=== PATIENT | male | born 1990 | race Caucasian/White ===

== ENCOUNTER 2017-07-14 13:20 | Emergency (ER) | payer OTHER, SELFPAY ==
[2017-07-14 13:22] VITALS: BP 141/94; PULSE 94; RESP 16; TEMP 37.2; O2SAT 100; BMI 28.8
--- NOTE | 2017-07-14 13:28 | EKG12_ITS ---
Test Reason : CP Blood Pressure : / mmHG Vent. Rate : 091 BPM Atrial Rate : 091 BPM P-R Int : 120 ms QRS Dur : 088 ms QT Int : 348 ms P-R-T Axes : 080 079 071 degrees QTc Int : 428 ms Normal sinus rhythm Normal ECG Confirmed by EUGENIE GUTIERREZ, LILIAN ([id number]), communications editor MARQUISE ENG ([id number]) on 07/16/2017 2:10:11 PM Referred By: CHAGO/AMINA Confirmed By:LILIAN TRAORE MD
[2017-07-14 15:25] VITALS: BP 136/86; PULSE 71; RESP 14; O2SAT 100
[2017-07-14 15:26] VITALS: O2SAT 99
--- NOTE | 2017-07-14 15:28 | ED.DCSUM_ITS ---
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 He has history of asthma. Where he works is exposed to dust. He does not wear a mask. He states he has been using his inhaler without much effect. He does not have a spacer. He does report intermittent fever no chills or night sweats. He does complain of nasal congestion and rhinorrhea. He denies earache. Just mild sore throat with coughing. His cough is nonproductive. His chest discomfort described as a spasm sensation centrally and left lower lobe anteriorly. He denies any radiation for associated symptoms with this chest discomfort. He denies any leg pain, swelling or discoloration. He has no history of PE or DVT. He has no risk factors. Physical Examination: Vital signs are remarkable only blood pressure 141/94. Head is atraumatic no cephalic. Pupils equal round reactive. Extra muscle intact. Sclerae anicteric. TMs are normal. Nares positive clear drainage. Posterior pharynx without erythema or exudate and a midline uvula. Trachea midline. No cervical lymphadenopathy. There is no stridor. Heart is regular without murmur, gallop or rub. S1 and S2 are normal. Lungs are clear to auscultation with good movement of air bilaterally. There is no chest chest discomfort with palpation. There is no asymmetry, swelling, discoloration, leg vein distention, palpable cords or tenderness along the distribution of the deep venous system. Test Results: None were obtained Emergency Department Course and Treatment: Patient is PERC negative. His history and symptoms are consistent with an acute viral respiratory infection and pleurisy. Treatment Plan: 4 Advil every 8 hours or 2 Aleve every 12 hours for the next 3- 5 days. He was given a prescription for a spacer. Disposition: Discharged to home in stable condition Impression: 1. Acute viral upper restaurant infection 2. Pleurisy secondary #1 3. History of asthma 4. History of HHT This note was generated with [employer] dictation software. It may contain incorrect words, spelling, and punctuation that were not noted in review of the chart prior to signing ED Disposition - Plan for ED Patient: Disposition: Home or Assisted Living Chief Complaint: Chest Pain Instructions: ED Chest Pain Pleurisy Prescriptions: Inhaler, Assist Devices [Space Chamber Plus] 1 gavi SWIFT UD #1 spacer Referrals: Care Physician,No Primary [Primary Care Provider] - Doctor,Your [STAFF PHYSICIAN] - 10-14 Days if not better
== END 2017-07-14 15:55 | disposition home or self-care (01) ==
PROVIDERS: Emergency Provider Emergency Medicine
DX: J06.9 Acute upper respiratory infection, unspecified (principal); R09.1 Pleurisy; J45.909 Unspecified asthma, uncomplicated; I78.0 Hereditary hemorrhagic telangiectasia
CPT/HCPCS: 93005; 99282

== ENCOUNTER 2018-02-20 08:47 | Emergency (ER) | payer OTHER, SELFPAY ==
[2018-02-20 08:48] VITALS: BP 129/87; PULSE 90; RESP 18; TEMP 36.6; O2SAT 100; BMI 29.3
--- NOTE | 2018-02-20 08:55 | RAD_ITS ---
STUDY: X-RAY - ACUTE ABDOMINAL SERIES REASON FOR EXAM: Male, 27 years old. Back pain and flank pain. TECHNIQUE: Single view of the chest. Supine, and erect view(s) of the abdomen were obtained. COMPARISON: None. FINDINGS: The lungs are clear and expanded. Embolization coils or sutures are seen in the right lung apex. Normal size heart. Normal mediastinum and mark. Normal visualized pulmonary arteries. Normal visualized aortic arch and descending thoracic aorta. There is a moderate amount of colonic fecal material. The soft tissue structures of the abdomen and pelvis are unremarkable. Metallic coils are seen overlying the liver. Normal visualized osseous structures. RAD/Acute Abdomen Inc Chest IMPRESSION: Moderate amount of fecal material is seen in the colon. Electronically Signed: Abdiel Clark MD at 9:37 EDT Tel [phone], Service support ,
--- NOTE | 2018-02-20 08:58 | ED.VISSUMM ---
- ER Visit Summary Date of Service: 02/20/18 Chief Complaint: Left lower back pain, constipation History of Present Illness: The patient is a 27 M presents to the emergency department with left lower back pain and constipation. Patient states his symptoms began gradually. He states he began to have a dull ache in his left lower back. He states over the past 36 hours, he is at other diminished stool output. He states he had constipation before, but is never had pain in his back. He denies any urinary symptoms. He denies any fevers or chills. He states he was mildly nauseated but denies any vomiting. He did try MiraLAX last night, but has had no output. He had no prior abdominal surgery. He denies any history of inflammatory bowel disease. He had no chills, weight loss, night sweats, or other systemic symptoms. Physical Examination: Vital signs reviewed General: Well-nourished, well-developed Head: Normocephalic, atraumatic Eyes: Pupils equal and reactive, extraocular muscles intact Neck, supple, no lymphadenopathy Heart: Regular rate and rhythm Respiratory: No distress, clear bilaterally Abdomen: Soft, nontender, nondistended, no peritoneal signs Back: Nontender Extremities: Nontender, no edema, no cords Skin: Normal color no rash Neuro: Alert and oriented, no focal or lateralizing deficits Test Results: [] Emergency Department Course and Treatment: The patient's abdomen is soft. He has no rebound, guarding, or peritoneal signs. He has no flank tenderness. IV was established. Patient was given IV fluids. He does have a mild leukocytosis, but I feel that this is likely reactive. Again, he had no other systemic symptoms besides some pain difficulty moving his bowels. I did obtain plain films of the abdomen. These do demonstrate a large stool burden, but the bulk of it appears to be in the ascending and transverse colon. I do not feel an enema is required at this time. I am going to treat him with magnesium citrate, Colace, and Bentyl to help with the spasm. The patient is resting comfortably. I did senior vice president & general counsel him that if his pain worsens, his symptoms not improving, he has a fever, or any other concerning symptoms within the next 24-48 hours he should return here immediately. He is comfortable with this plan of care. Treatment Plan: [] Disposition: [] Impression: 1. Abdominal pain 2. Constipation This note was generated with [employer] dictation software. It may contain incorrect words, spelling, and punctuation that were not noted in review of the chart prior to signing ED Disposition - Plan for ED Patient: Chief Complaint: Back Instructions: ED Constipation Prescriptions: Dicyclomine HCl [Bentyl] 20 mg PO TIDAC #20 cap Docusate Sodium [Colace] 100 mg PO DAILY #20 cap Referrals: Tanvir Mclaughlin MD [Primary Care Provider] -
[2018-02-20] MEDS: 0.9% Normal Saline 1,000 ML 1000 ML IV (09:10)
[2018-02-20 09:14] LABS: Absolute Lymphocyte Count 1.09 X10^3/ul (0.83-4.51); Absolute Neutrophil Count 11.2 X10^3/uL (2.0-7.7); Hematocrit 47.2 % (40-54); Hemoglobin 15.8 g/dl (13.0-16.5); Lymphocyte # 1.09 X10^3/ul (4.0); Lymphocyte % 8.1 % (19-41); Mean Corp Hgb Conc 33.5 g/gl (32-36); Mean Corpuscular Hgb 29.3 pg (27.0-32.0); Mean Corpuscular Volume 87.4 fL (80-94); Mean Platelet Vol. 9.7 fl (6.2-12.0); Monocyte# 1.28 X10^3/uL; Monocyte% 9.5 % (0-10); Neutrophil # 11.16 X10^3/uL (2.7-7.7); Neutrophil % 82.3 % (47-70); Platelet Count 227 K/mm3 (150-450); RBC Distribution Width CV 13.6 % (11.6-14.6); RBC Distribution Width SD 43.5 fl (35.1-43.9); White Blood Count 13.5 K/mm3 (4.4-11.0)
[2018-02-20 09:15] LABS: POSITIVE COUNT NO; POSITIVE DIFFERENTIAL NO; POSITIVE MORPHOLOGY NO
[2018-02-20 09:30] LABS: ALB/GLOB Ratio 1.1 RATIO (0.9-2.4); AST(SGOT) 16 U/L (15-37); Alanine Aminotransfer ALT/SGPT 29 U/L (16-61); Albumin, Serum 4.4 g/dL (3.2-5.0); Alkaline Phosphatase 72 U/L (45-117); Anion Gap 9 (5-15); BUN 18 mg/dL (7-18); BUN/Creat Ratio 13.1 RATIO (10-20); Calcium,Total 9.1 mg/dL (8.5-10.1); Chloride 107 mmol/L (98-107); Creatinine, Serum 1.37 mg/dL (0.70-1.30); EST Glomerular Filtration Rate 65 mL/min (>60); Est Glom Filt Rate - Afr Amer 79 mL/min (>60); Estimated Creatinine Clearance 76.97 ml/min; Globulin 3.9 g/dL (2.2-4.2); Glucose 103 mg/dL (74-106); Potassium 4.1 mmol/L (3.5-5.1); Protein, Total 8.3 g/dL (6.4-8.2); Sodium Level 141 mmol/L (136-145)
[2018-02-20 09:52] VITALS: BP 129/93; PULSE 80; RESP 16; O2SAT 100
[2018-02-20] MEDS: Magnesium Citrate 300 ML PO (09:56)
== END 2018-02-20 09:56 | disposition home or self-care (01) ==
PROVIDERS: Emergency Provider Emergency Medicine; Family Provider Family Medicine; PCP Family Medicine
DX: K59.00 Constipation, unspecified (principal); R10.9 Unspecified abdominal pain
CPT/HCPCS: 74022; 80053; 85025; 96360; 99285; J7030

== ENCOUNTER 2018-04-07 12:48 | Emergency (ER) | payer OTHER, SELFPAY ==
[2018-04-07 12:49] VITALS: BP 141/94; PULSE 99; RESP 18; TEMP 35.8; O2SAT 100; BMI 32.2
--- NOTE | 2018-04-07 13:00 | RAD_ITS ---
STUDY: X-RAY - LEFT HAND REASON FOR EXAM: Male, 27 years old. Crush injury. Pain. TECHNIQUE: 3 view(s) of the hand. COMPARISON: None. FINDINGS: Normal radiocarpal articulation. Normal distal radioulnar joint. Normal visualized carpal bones. Normal carpal articulations Normal carpometacarpal articulation of the thumb. Normal second through fifth carpometacarpal joints. Normal metacarpi. Normal metacarpophalangeal joint of the thumb. Normal interphalangeal joint of the thumb. Normal proximal and distal phalanges of the thumb. Normal metacarpophalangeal joints of the second through fifth fingers. Normal proximal and distal interphalangeal joints of the second through fifth fingers. Normal phalanges of the second through fifth fingers. Soft tissue swelling. RAD/Hand Min 3 Views IMPRESSION: Soft tissue swelling. Electronically Signed: Abdiel Clark MD at 13:51 EST Tel [phone], Service support ,
--- NOTE | 2018-04-07 14:28 | ED.DCSUM_ITS ---
- ER Visit Summary Date of Service: 04/07/18 Chief Complaint: [3 to left hand] History of Present Illness: The patient is a 27 M [presents to the emergency department complaint of an injury to his left hand that occurred while at work about 20 minutes ago. Patient states that a mold came off the hook and crushed his left hand between the mold weighing over 200 pounds in a beam. Patient is right-hand dominant. Patient is up-to-date on tetanus.] Physical Examination: [Left hand-patient has a 2.5 cm laceration over the dorsum of the hand. No obvious deformity. Patient has normal range of motion of all digits. Patient does complain of some numbness to light touch over the radial aspect of the dorsum of the hand. No pain at the wrist.] Test Results: [X-rays of the left hand obtained showed no fractures] Emergency Department Course and Treatment: [Laceration repair-wound sterilely draped and prepped. Wound cleansed with Shur-Clens and irrigated with copious saline. Using 5-0 nylon a total of 3 single interrupted sutures placed with good wound edge approximation. Patient tolerated procedure well. Clean dressing was applied. Patient given an Kenrick wrap. Patient given 1 dose of Keflex.] Treatment Plan: [Patient will be started on Keflex and given work restrictions.] Disposition: [Discharged home in stable condition. Patient to follow-up with corporate care in 10 days for suture removal.] Impression: [Crush injury left hand Laceration left hand 2.5 cm-simple repair] This note was generated with [employer] dictation software. It may contain incorrect words, spelling, and punctuation that were not noted in review of the chart prior to signing ED Disposition - Plan for ED Patient: Chief Complaint: Upper Extremity Injury Referrals: Tanvir Mclaughlin MD [Primary Care Provider] -
--- NOTE | 2018-04-07 14:28 | ED.DEP ---
ED Disposition - Plan for ED Patient: Chief Complaint: Upper Extremity Injury Instructions: ED Crush Injury Finger No Fx, ED Laceration Hand Prescriptions: Cephalexin [Keflex] 500 mg PO Q6 #40 cap Referrals: Tanvir Mclaughlin MD [Primary Care Provider] - [facility]] - 10 Day for suture removal
[2018-04-07] MEDS: Cephalexin 250 MG Capsule 500 MG PO (14:38)
== END 2018-04-07 14:43 | disposition home or self-care (01) ==
PROVIDERS: Emergency Provider Emergency Medicine; Family Provider Family Medicine; PCP Family Medicine
DX: S61.412A Laceration without foreign body of left hand, initial encounter (principal); S67.22XA Crushing injury of left hand, initial encounter; W22.8XXA Striking against or struck by other objects, initial encounter; Y93.9 Activity, unspecified; Y92.9 Unspecified place or not applicable; F17.220 Nicotine dependence, chewing tobacco, uncomplicated
CPT/HCPCS: 12001; 73130; 99284

== ENCOUNTER 2024-04-16 11:19 | Emergency (ER) | payer OTHER, SELFPAY ==
[2024-04-16 11:20] VITALS: BP 158/91; PULSE 102; RESP 20; TEMP 36.4; O2SAT 98; BMI 31.7
--- NOTE | 2024-04-16 11:26 | ED.RN ---
network control supervisor levi [phone] called and left message at this time to call back about drug testing status company not listed in hospital database
--- NOTE | 2024-04-16 11:32 | RAD_ITS ---
STUDY: X-RAY - LEFT HAND REASON FOR EXAM: Male, 33 years old. Pain TECHNIQUE: 3 view(s) of the hand. COMPARISON: None. FINDINGS: Normal radiocarpal articulation. Normal distal radioulnar joint. Normal visualized carpal bones. Normal carpal articulations Normal carpometacarpal articulation of the thumb. Normal second through fifth carpometacarpal joints. Normal metacarpi. Normal metacarpophalangeal joint of the thumb. Normal interphalangeal joint of the thumb. Normal proximal and distal phalanges of the thumb. Normal metacarpophalangeal joints of the second through fifth fingers. Normal proximal and distal interphalangeal joints of the second through fifth fingers. Transverse fracture through the middle phalanx of the index finger. Soft tissue swelling. RAD/Hand Min 3 Views IMPRESSION: Transverse fracture through the midportion of the middle phalanx of the index finger. Electronically Signed: Abdiel Clark MD at 12:03 EST ,
--- NOTE | 2024-04-16 11:32 | RAD_ITS ---
STUDY: X-RAY - RIGHT HAND REASON FOR EXAM: Male, 33 years old. Pain following injury. TECHNIQUE: 3 view(s) of the hand. COMPARISON: None. FINDINGS: Normal radiocarpal articulation. Normal distal radioulnar joint. Normal visualized carpal bones. Normal carpal articulations Normal carpometacarpal articulation of the thumb. Normal second through fifth carpometacarpal joints. Normal metacarpi. Normal metacarpophalangeal joint of the thumb. Normal interphalangeal joint of the thumb. Normal proximal and distal phalanges of the thumb. Normal metacarpophalangeal joints of the second through fifth fingers. Normal proximal and distal interphalangeal joints of the second through fifth fingers. Normal phalanges of the second through fifth fingers. The soft tissue structures are unremarkable. RAD/Hand Min 3 Views IMPRESSION: Normal x-ray examination of the hand. Electronically Signed: Abdiel Clark MD at 12:02 EST ,
--- NOTE | 2024-04-16 11:36 | EDS_ITS ---
HPI <ALVAREZ Andre - Last Filed: 04/16/24 15:10> History of Present Illness Chief Complaint: Upper Extremity Injury Narrative Narrative: 33-year-old male was at his job and a clamp holding steel molds came off and both hands were crushed in between the molds. He had started to pull his hands back so mostly his fingers were injured. He has small lacerations to the left middle and right pinky fingers. He is right-hand dominant. No weakness numbness or tingling. PFSH <ALVAREZ Andre - Last Filed: 04/16/24 15:10> [facility] Medical History Right otitis media Encounter for screening for COVID-19 Chronic neck and back pain Asthma Chest pain Home Medications ?Medication ?Instructions ?Recorded ?Last Taken ?Type NK 04/05/21 Unknown History Allergy/AdvReac Type Severity Reaction Status Date / Time No Known Allergies Allergy Verified 04/05/21 10:27 Family History Other HHT (hereditary hemorrhagic telangiectasia) Surgical History coil of AVMS in lungs Social History Smoking Status: Never smoker ROS <ALVAREZ Andre - Last Filed: 04/16/24 15:10> ROS ED ROS Narrative Neuro: Negative for motor/sensory dysfunction. Skin: Positive for abrasions. Musc: Positive for hand injuries. EXAM <ALVAREZ Andre - Last Filed: 04/16/24 15:10> Physical Exam Narrative Exam Narrative: CONST: Patient sitting in no acute distress. EYES: Normal inspection. SKIN: 1 cm superficial flap laceration left dorsal PIP joint of the middle finger. 1 cm superficial laceration right dorsal proximal phalanx of the pinky finger. EXTREMITIES: Swelling and tenderness over the left index finger and slight deformity over middle phalanx. No lacerations in this area. Brisk cap refill in all digits, 2 point discrimination intact. NEURO: Alert and answering questions appropriately. PSYCH: Normal affect. Const Vital Signs: 04/16/24 11:20 Temperature 97.5 F L Temperature Source Temporal Pulse Rate 102 H Respiratory Rate 20 H Blood Pressure 158/91 H Blood Pressure Mean 113 Pulse Ox 98 Oxygen Delivery Method Room Air [facility] <ALVAREZ Andre - Last Filed: 04/16/24 15:10> [facility] Narrative Medical decision making narrative: Differential: Hand contusion versus fracture Consults: plastic surgery I have personally performed a face to face assessment of the patient and have reviewed the JOAO Note. I performed a substantive portion of the visit including all aspects of the following. My jenkins findings include: History is remarkable for crush injury to fingers of his right and left hand. [id number]. Complains of numbness in his left index finger. Will assess tetanus status. Exam is remarkable for deformity of the left index finger. 2 point discrimination is normal. The extensor Intrasite, extensor commonness and extensor minimized tendon is intact right and left hand. The flexor digitorum superficialis and flexor digitorum profundus are intact left index finger. There is deformity of his left index finger. Capillary fill is normal. There is no subungual hematoma of any of his digits. Does have lacerations which were pared by the physician customer care assistant. Medical Decision Making x-ray was obtained. ED attending interpretation of left hand shows a displaced fracture of the middle phalanx. He has bayonet apposition with the distal fragment displaced dorsally. Other additions or changes: Digit was anesthetized by nerve block. The finger/fracture was reduced. Postreduction film shows better alignment but he will require repair. Spoke with Dr. Nuñez. He agrees patient needs repair. He did see patient in the emergency department. Patient is scheduled for repair on Friday. <Dr. Jesus Manuel Wallis MD - Last Filed: 04/16/24 17:24> [facility] Narrative Medical decision making narrative: Differential: Hand contusion versus fracture Consults: plastic surgery I have personally performed a face to face assessment of the patient and have reviewed the JOAO Note. I performed a substantive portion of the visit including all aspects of the following. My jenkins findings include: History is remarkable for crush injury to fingers of his right and left hand. [id number]. Complains of numbness in his left index finger. Will assess tetanus status. Exam is remarkable for deformity of the left index finger. 2 point discrimination is normal. The extensor Intrasite, extensor commonness and extensor minimized tendon is intact right and left hand. The flexor digitorum superficialis and flexor digitorum profundus are intact left index finger. There is deformity of his left index finger. Capillary fill is normal. There is no subungual hematoma of any of his digits. Does have lacerations which were pared by the physician customer care assistant. Medical Decision Making x-ray was obtained. ED attending interpretation of left hand shows a displaced fracture of the middle phalanx. He has bayonet appo sition with the distal fragment displaced dorsally.Closed reduction of fracture by me. Other additions or changes: Digit was anesthetized by nerve block. The finger/fracture was reduced. Postreduction film shows better alignment but he will require repair. Spoke with Dr. Nuñez. He agrees patient needs repair. He did see patient in the emergency department. Patient is scheduled for repair on Friday. Procedures <ALVAREZ Andre - Last Filed: 04/16/24 15:10> Lacerations left middle finger: Length: 0.39 in Depth: Skin Shape: Flap Prep: Sterile Conditions and Shure-Clens Laceration repair: Irrigated and Lidocaine Irrigated (ml): 50 Number of Sutures/Rayo: 2 Suture Information: Ethilon and 5-0 right pinky finger: Length: 0.39 in Depth: Skin Shape: Linear Prep: Sterile Conditions Laceration repair: Irrigated and Lidocaine Irrigated (ml): 50 Number of Sutures/[place]: 2 Suture Information: Ethilon and 5-0 <Dr. Jesus Manuel Wallis MD - Last Filed: 04/16/24 17:24> Upper Extremity Splints Upper Extremity Splint: Plaster and - (short arm radial cutter) Splint Fabrication: Fabricated Location: Left Discharge Plan Triage Chief Complaint: Upper Extremity Injury ED Midlevel Provider: Yuli Becker ED Provider: Jesus Manuel Wallis Dx/Rx/DC Orders Clinical Impression: Closed fracture of phalanx of left index finger, Laceration of left middle finger, Laceration of right little finger, Crush injury to hand Instructions: ED Fracture, Finger, Closed Prescriptions: No Action NK Primary Care Provider: Tanvir Mclaughlin Referrals: Tanvir Mclaughlin MD [Primary Care Provider] - Armand Nuñez MD [Med Staff - Active Staff] - Activity Restrictions/Additional Instructions: Get cleared by your film inspector and then Dr. Nuñez plans to do surgery on the finger this Friday. Print Language: Bahraini Disposition Disposition: Home, Self Care Discharge Date/Time: 04/16/24 14:38
[2024-04-16] MEDS: Diphth,Pertuss(Acell),Tet Vac 0.5 ML Vial IM (12:02)
[2024-04-16] MEDS: Acetaminophen 500 MG Tablet 1000 MG PO (12:03)
[2024-04-16] MEDS: Lidocaine 1% (20 ml mdv) 20 ML Vial INFILT (12:11)
[2024-04-16 12:19] VITALS: BP 138/98; PULSE 89; RESP 16; O2SAT 99
--- NOTE | 2024-04-16 12:43 | RAD_ITS ---
STUDY: X-RAY - LEFT HAND REASON FOR EXAM: Male, 33 years old. Pain TECHNIQUE: 3 view(s) of the hand. COMPARISON: Comparison is made with prior study done earlier. FINDINGS: Normal radiocarpal articulation. Normal distal radioulnar joint. Normal visualized carpal bones. Normal carpal articulations Normal carpometacarpal articulation of the thumb. Normal second through fifth carpometacarpal joints. Normal metacarpi. Normal metacarpophalangeal joint of the thumb. Normal interphalangeal joint of the thumb. Normal proximal and distal phalanges of the thumb. Normal metacarpophalangeal joints of the second through fifth fingers. Normal proximal and distal interphalangeal joints of the second through fifth fingers. Satisfactory reduction of the fracture through the middle phalanx of the index finger. Soft tissue swelling. RAD/Hand Min 3 Views IMPRESSION: Satisfactory reduction of the fracture through the middle phalanx of the index finger. Electronically Signed: Abdiel Clark MD at 12:53 EST ,
[2024-04-16 13:00] VITALS: BP 116/68; PULSE 78
[2024-04-16 14:00] VITALS: BP 124/87; PULSE 75
--- NOTE | 2024-04-16 14:28 | EX.PCM.CON.S ---
Assessment & Plan Assessment/Plan (1) Closed fracture of phalanx of left index finger: PLAN: I talked the patient extensively about the risks of surgery, including bleeding, infection, damage to surrounding structures, malunion/nonunion, failure of the hardware, worsening of the fracture with attempted placement of hardware (including creating an intra-articular component of the fracture), infection of the hardware, surgical site dehiscence and wound formation, need for wound care, need for repeat operations, failure to obtain the desired result, DVT/PE, and the risks of anesthesia including . The benefits and alternatives of this surgery were also discussed. We discussed possibility of managing closed, which would need require immobilization and likely re-reduction for improved alignment. For surgery, we talked about sedation and local as a possibility. We will have him get clearance/medical optimization recommendations from his woodyard operator in anticipation for fracture fixation (possible closed reduction percutaneous pinning v open reduction internal fixation of the left index finger fracture). CPT codes for insurance prior authorization are as follows: 76216 (open, internal fix), 15903 (closed perc pin) All of their questions were answered, and they agreed to proceed with surgery. Patient and his were happy with the plan. HPI Consult Data Date of Consult: 04/16/24 HPI Narrative HPI Narrative: ANANDA COWART is a 33 M who presents with a left index finger crush injury/fracture. 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 Reports sharp, severe pain in the effected extremity, worsened by movements, and improved with rest and elevation. He has never had surgery on the left hand before. He chews tobacco consistently (discussed need for cessation). He had lacerations on his right and left hand on other fingers, but no bony injuries in these locations on xrays. He does not have any lacerations (closed injury) at the fracture site. The ED physician washed out the lacerations and closed them. He also attempted a reduction of fracture, but appears still displaced on the xray. He has a history of a bleeding diathesis. 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 He follows with a physician at [facility]. He had a severe bleed as a child with his tonsils being removed, and he gets daily nose bleeds. [facility] Medical History Right otitis media Encounter for screening for COVID-19 Chronic neck and back pain Asthma Chest pain Home Medications ?Medication ?Instructions ?Recorded ?Last Taken ?Type NK 04/05/21 Unknown History Allergy/AdvReac Type Severity Reaction Status Date / Time No Known Allergies Allergy Verified 04/05/21 10:27 Family History Other HHT (hereditary hemorrhagic telangiectasia) Surgical History coil of AVMS in lungs Social History Smoking Status: Never smoker Physical Exam Narrative LEFT UPPER EXTREMITY Inspection: No scissoring or angulation, but clear deformity (dorsal angulation) Motor: Able to bend and extend all MP, PIP, and DIP joints. Sensory: Intact to light touch on the radial and ulnar borders. Vascular: Finger tips are warm and well perfused with <2 second capillary refill. Imaging Radiology Impression Hand X-Ray 04/16/24 11:32 IMPRESSION: Transverse fracture through the midportion of the middle phalanx of the index finger. Electronically Signed: Abdiel Clark MD at 12:03 EST , Hand X-Ray 04/16/24 11:32 IMPRESSION: Normal x-ray examination of the hand. Electronically Signed: Abdiel Clark MD at 12:02 EST , Hand X-Ray 04/16/24 12:43 IMPRESSION: Satisfactory reduction of the fracture through the middle phalanx of the index finger. Electronically Signed: Abdiel Clark MD at 12:53 EST , Charges/Coding Visit Charges Office Visits / Consults: [id number] OV L5 [facility] 60min
[2024-04-16 14:37] VITALS: BP 126/78; PULSE 87; RESP 19; TEMP 36.6; O2SAT 100
== END 2024-04-16 14:38 | disposition home or self-care (01) ==
PROVIDERS: Emergency Provider Emergency Medicine; PCP Family Medicine; Referring Provider Emergency Medicine; Visit Provider Emergency Medicine
DX: S62.621A Displaced fracture of middle phalanx of left index finger, initial encounter for closed fracture (principal); S61.213A Laceration without foreign body of left middle finger without damage to nail, initial encounter; S61.216A Laceration without foreign body of right little finger without damage to nail, initial encounter; S67.21XA Crushing injury of right hand, initial encounter; S67.22XA Crushing injury of left hand, initial encounter; W31.9XXA Contact with unspecified machinery, initial encounter; Y99.0 Civilian activity done for income or pay; Z23 Encounter for immunization; F17.220 Nicotine dependence, chewing tobacco, uncomplicated
CPT/HCPCS: 26725; 12001; 29125; 73130; 90471; 90715; 99282; A4216

== ENCOUNTER 2024-04-20 13:11 | Day surgery (SDC) | payer OTHER, SELFPAY ==
[2024-04-20] VITALS (7 sets, daily range): BP systolic 118–145; BP diastolic 80–95; PULSE 75–106; RESP 16–20; TEMP 36.6–37.1; O2SAT 16–100
--- NOTE | 2024-04-20 13:33 | PCM.PRE.AN2 ---
ASA Classification* ASA Classification ASA Classification: 2 Assessment & Plan Anesthesia* Anesthesia Assessment Anesthesia Assessment: Discussed sedation and/or anesthesia options, risks, benefits, and alternatives with patient/parents/legal guardian/POA. Questions invited. The patient/parents/legal guardian/POA seems to understand and agrees to proceed with anesthesia plan. Reviewed the physical assessment, medical history, allergy history and patient home medications list prior to surgery/procedure/anesthetic and documented any changes. Performed airway and anesthesia risk assessments. Anesthesia Type Anesthesia Type: MAC (see written pre anesthesia record for full assessment) Anesthesia Focused Assessment* Airway Assessment Mouth opens: >3 cm Mallampati Score: II Focused Labs Anesthesia Preop lab: CBC WBC 13.5 K/mm3 (4.4-11.0) H 02/20/18 09:05 RBC 5.40 M/mm3 (4.6-6.2) 02/20/18 09:05 Hgb 15.8 g/dl (13.0-16.5) 02/20/18 09:05 Hct 47.2 % (40-54) 02/20/18 09:05 Plt Count 227 K/mm3 (150-450) 02/20/18 09:05 CHEMISTRY Potassium 4.1 mmol/L (3.5-5.1) 02/20/18 09:05 Sodium 141 mmol/L (136-145) 02/20/18 09:05 BUN 18 mg/dL (7-18) 02/20/18 09:05 Creatinine 1.37 mg/dL (0.70-1.30) H 02/20/18 09:05 Glucose 103 mg/dL (74-106) 02/20/18 09:05 COAG Pre-Assessment Diagnosis/Proposed Procedure Planned Operative Procedure(s): CR perc pin L index finger Anesthesia History Anesthesia History - prospecting observer: Anesthesia History - prospecting observer Hx Hospitalization Any Problems With Anesthesia Cholinesterase deficiency You/Your Family Experience fever (hyperthermia) with Relationship Recent Exposure to Contagious Disease Does patient have nerve stimulator Patient instructed to have device shut off --Does patient have Pacemaker or ICD? When Was Last Pacemaker Check QUESTION #4 FULL TEXT: You/Your Family Experience fever (hyperthermia) with Anesthesia Last Oral Intake Last Oral intake: Last Oral Intake NPO since Meds taken in AM with sips of water? Meds patient instructed to take am of surgery PONV PONV - prospecting observer: PONV - prospecting observer Female HX of Motion Sickness HX of N/V After Surgery Non-Smoker Duration of Surgery greater than 60 minutes Number of Risk Factors PONV Score Height & Weight Height & Weight: Anesthesia: Height & Weight Height 5 ft 7 in 04/16/24 11:20 Respiratory Assessment Respiratory Assessment - prospecting observer: Respiratory Tract Infection Hx - prospecting observer Hx Respiratory Tract Infection STOP Sleep Apnea STOP Sleep Apnea - prospecting observer: STOP Sleep Apnea - prospecting observer Hx Hypertension Hx Sleep Apnea CPAP BIPAP Do you snore loudly (louder than talking or can be heard Do you often feel tired/ fatigued/ sleepy during daytime? Has anyone observed you stop breathing during sleep? STOP Results QUESTION #5 FULL TEXT : Do you snore loudly (louder than talking or can be heard through closed doors)? Tobacco Use History Tobacco Use History - prospecting observer: Tobacco Use History - prospecting observer Tobacco Use Smoking Status Never smoker 04/16/24 11:57 Hx Tobacco Use No 04/07/18 13:25 Years Smoking Packs Smoked per Day Smoking Cessation Date was within the last 15 years Hx Smoking Cessation Date Hx Smoking Cessation Counseling Hematologic Medial History Hematologic Hx - prospecting observer: Hematologic Medical Hx - glass etcher helper Hx of Blood Transfusion Hx of Transfusion in last 3 Months Date of Last Transfusion (if within last 3 months) Ever experience any problems with transfusion(s)? Specify any problems Hx of Preganancy in last 3 Months Nurse Filling Out Transfusion & Questions: Date: Time: Patient unable to answer at this time (ie. confused, unrespo /Reproduction History /Reproductive History - prospecting observer: /Reproductive Hx- prospecting observer Hx Now Gestational Age (in weeks): EDC: Hx Hx Para Hx Section SAB Active Medications Active Medications: Current Medications Generic Name Dose Route Start Last Admin Trade Name Freq PRN Reason Stop Dose Admin Cefazolin Sodium 2 gm/ N/A 20 mls @ 400 mls/hr 04/20/24 15:00 IV 04/20/24 15:02 PREOP ONE Lactated Ringer's 1,000 mls @ 15 mls/hr 04/20/24 13:30 IV 04/26/24 02:49 .Q48H [facility] Protocol PFSH Medical History Right otitis media Encounter for screening for COVID-19 Chronic neck and back pain Asthma Chest pain Home Medications ?Medication ?Instructions ?Recorded ?Last Taken ?Type NK 04/05/21 Unknown History Allergy/AdvReac Type Severity Reaction Status Date / Time No Known Allergies Allergy Verified 04/05/21 10:27 Family History Other HHT (hereditary hemorrhagic telangiectasia) Surgical History coil of AVMS in lungs Social History Smoking Status: Never smoker Review of Systems (Anesthesia) ROS Narrative System reviewed and no additional complaints, except as documented.
--- NOTE | 2024-04-20 13:39 | PCM.HP.STD ---
HPI - General HPI Narrative ANANDA COWART is a 33 M who presents with a left index finger crush injury/fracture. 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 Reports sharp, severe pain in the effected extremity, worsened by movements, and improved with rest and elevation. He has never had surgery on the left hand before. He chews tobacco consistently (discussed need for cessation). He had lacerations on his right and left hand on other fingers, but no bony injuries in these locations on xrays. He does not have any lacerations (closed injury) at the fracture site. The ED physician washed out the lacerations and closed them. He also attempted a reduction of fracture, but appears still displaced on the xray. He has a history of a bleeding diathesis. 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 He follows with a physician at [facility]. He had a severe bleed as a child with his tonsils being removed, and he gets daily nose bleeds. Current Encounter (DATE OF SURGERY H&P UPDATE): I saw and examined the patient this morning in pre-operative holding. We discussed risks and benefits of today's surgery and they would like to proceed. NO CHANGE in health history since last seen and evaluated. Ready to proceed with surgery. [facility] Medical History Right otitis media Encounter for screening for COVID-19 Chronic neck and back pain Asthma Chest pain Home Medications ?Medication ?Instructions ?Recorded ?Last Taken ?Type NK 04/05/21 Unknown History Allergy/AdvReac Type Severity Reaction Status Date / Time No Known Allergies Allergy Verified 04/05/21 10:27 Family History Other HHT (hereditary hemorrhagic telangiectasia) Surgical History coil of AVMS in lungs Social History Smoking Status: Never smoker Physical Exam Narrative LEFT UPPER EXTREMITY Inspection: No scissoring or angulation, but clear deformity (dorsal angulation) Motor: Able to bend and extend all MP, PIP, and DIP joints. Sensory: Intact to light touch on the radial and ulnar borders. Vascular: Finger tips are warm and well perfused with <2 second capillary refill. Assessment & Plan Assessment/Plan (1) Closed fracture of phalanx of left index finger: PLAN: Plan I talked the patient extensively about the risks of surgery, including bleeding, infection, damage to surrounding structures, malunion/nonunion, failure of the hardware, worsening of the fracture with attempted placement of hardware (including creating an intra-articular component of the fracture), infection of the hardware, surgical site dehiscence and wound formation, need for wound care, need for repeat operations, failure to obtain the desired result, DVT/PE, and the risks of anesthesia including . The benefits and alternatives of this surgery were also discussed. We discussed possibility of managing closed, which would need require immobilization and likely re-reduction for improved alignment. For surgery, we talked about sedation and local as a possibility. We will have him get clearance/medical optimization recommendations from his hot box spotter in anticipation for fracture fixation (possible closed reduction percutaneous pinning v open reduction internal fixation of the left index finger fracture). CPT codes for insurance prior authorization are as follows: 05983 (open, internal fix), 56441 (closed perc pin) All of their questions were answered, and they agreed to proceed with surgery. Patient and his were happy with the plan. INTERVAL H&P PLAN, DATE OF SURGERY: We will proceed with surgery today. He has been cleared by his hematology team for surgery in setting of his HHT.
--- NOTE | 2024-04-20 14:40 | RAD_ITS ---
INDICATION: CLOSED REDUCT PERCUTANIOUS PINNING LT INDEX FINGER EXAMINATION/TECHNIQUE: X-RAY - LEFT HAND XR Fingers Min 2 Views 9 fluoroscopic images. Total fluoroscopic time 2 minutes 41 seconds . Dose area product 16.9767 cGy*cm2. COMPARISON: Prior study dated: 04/16/2024 FINDINGS: There is manipulation of the bony fragments involving the second digit middle phalanx fracture. There is then placement of a screw across the fracture fragments with near-anatomic alignment. Joint spaces are maintained. RAD/Finger(s) Min 2 Views IMPRESSION: Internal fixation of the second digit middle phalanx fracture with appropriate alignment. Please refer to operative report for further information. Electronically Signed: Jarvis Pereira MD at 23:52 EST ,
[2024-04-20] MEDS: Cefazolin 2 GM in Syringe IV (14:50)
--- NOTE | 2024-04-20 15:04 | OP.PCM_ITS ---
Problems Associated Problem List Diagnoses (1) Closed fracture of phalanx of left index finger: Operative Report (Standard) Operative Information Surgery/Procedure Performed: 1) Open reduction, internal fixation of left index finger middle phalanx (P2) fracture, CPT 49717 Surgeon: Armand Nuñez Date of Procedure: 04/20/24 Procedure Start Time: 15:17 Procedure Stop Time: 15:46 Pre-Operative Diagnosis: Left index finger transverse middle phalanx fracture (P2) Post-Operative Diagnosis: Same Select all DRAINS/GRAFTS/IMPLANTS that apply: None Type of Anesthesia: MAC/Supplemental (10 cc of 50/50 mixture of lidocaine 1% and Bupivucaine 0.25% both without epinephrine ) Estimated Blood Loss: Minimal Fluids Replaced: 300 cc LR Specimen collected: No Description of surgery: Indications: Korey Ruth is a 33-year-old male who 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 Presents today for fracture fixa tion of his left index finger middle phalanx transverse P2 fracture. He understands risks, benefits, and alternatives of fracture fixation. Procedure details: The patient was correctly identified in preoperative holding and taken back to the operating room where he was administered sedation and local. He was prepped and draped in sterile fashion and all proper timeouts were performed. We began the procedure by identifying the fracture using the mini C arm and reducing it by close manipulation. Once the appropriate reduction was obtained, I drilled a 0.028 K wire through the terminal slip/DIP joint of the left index finger through the fracture line incorporating the distal and proximal P2 segments to stabilize the reduction. I then took a 15 blade and made a longitudinal incision with care to preserve the terminal slip (cut along the axis of the terminal slip so as to preserve all fibers of the slip), which was made just big enough to place a 2 mm diameter Acumed screw (18 mm length, MRI compatible). The screw was then guided with the wire into place into the medullary cavity of the middle phalanx transversing the fracture line, with care taken to place the screw outside of the DIP joint and outside of the PIP joint. X-rays were taken (PA and lateral) and we were happy with positioning of the screw. The wire was removed. The cascade of the fingers was assessed and there was no rotation or angulation of the index finger. The wound was irrigated and the small incision was closed with an interrupted 4-0 Chromic Gut suture. A radial gutter splint was applied with plaster. The patient tolerated the procedure well and was awakened and taken the PACU in stable condition. Postoperative plan: Continue complete immobilization in radial gutter splint and obtain x-rays in 1 week at follow-up. Surgical Findings: Reducible transverse P2 fracture of the left index finger Procurement Services Manager power equipment technology instructor: No Complications Complications: No Admit VTE Documentation VTE Mechan Device Prophylaxis: SCD's
[2024-04-20] MEDS: Bupivacaine Mpf 0.5% 30 ML VIAL (15:17)
[2024-04-20] MEDS: Lidocaine 1% (20 ml mdv) 20 ML Vial (15:17)
--- NOTE | 2024-04-20 15:52 | PCM.POST.ANE ---
Anesthesia: Postop Eval I Current Vital Signs Temperature: 98.7 F Pulse Rate: 92 Blood Pressure: 145/95 Respiratory Rate: 20 Pulse Ox: 98 Assessment Airway patent: Yes Spontaneous unlabored respirations: Yes nausea: No Vomiting: No Anesthesia Complication: No Fluid Hydration Crystalloid volume administer (ml): 0 Total IV fluid infused: 0 Progress Note Anesthesia document: Postop Eval 1 completed: Yes
--- NOTE | 2024-04-20 16:17 | POSTOPAN2_ITS ---
Anesthesia Postop Eval I Sum Postop Eval Completion status Anesthesia document: Postop Eval 1 completed: Yes Anesthesia Postop Eval I Summary Anesthesia Postop Eval I Summary: Anesthesia Postop Eval I: Assessment Summary Airway patent Yes 04/20/24 15:52 MULTIPLE COIL WINDER.CSIR Spontaneous unlabored Yes 04/20/24 15:52 MULTIPLE COIL WINDER.CSIR respirations Mental status nausea No 04/20/24 15:52 MULTIPLE COIL WINDER.CSIR Vomiting No 04/20/24 15:52 MULTIPLE COIL WINDER.CSIR Anesthesia Postop Eval I: Fluid Summary Crystalloid volume administer 0 04/20/24 15:52 MULTIPLE COIL WINDER.CSIR (ml) Colloids volume administered ( ml) Blood Product volume administered (ml) Total IV fluid infused 0 04/20/24 15:52 MULTIPLE COIL WINDER.CSIR Anesthesia Postop Eval I: Summary Notes Anesthesia Complication No 04/20/24 15:52 MULTIPLE COIL WINDER.CSIR Anesthesia Complication Comment: Post-operative progress note Anesthesia: Postop Eval II Evaluation Mental status: Awake Pain Level: 0 nausea: No Vomiting: No
--- NOTE | 2024-04-20 16:17 | PCM.POSTANE2 ---
Anesthesia Postop Eval I Sum Postop Eval Completion status Anesthesia document: Postop Eval 1 completed: Yes Anesthesia Postop Eval I Summary Anesthesia Postop Eval I Summary: Anesthesia Postop Eval I: Assessment Summary Airway patent Yes 04/20/24 15:52 LEGAL RECEPTIONIST.CSIR Spontaneous unlabored Yes 04/20/24 15:52 LEGAL RECEPTIONIST.CSIR respirations Mental status nausea No 04/20/24 15:52 LEGAL RECEPTIONIST.CSIR Vomiting No 04/20/24 15:52 LEGAL RECEPTIONIST.CSIR Anesthesia Postop Eval I: Fluid Summary Crystalloid volume administer 0 04/20/24 15:52 LEGAL RECEPTIONIST.CSIR (ml) Colloids volume administered ( ml) Blood Product volume administered (ml) Total IV fluid infused 0 04/20/24 15:52 LEGAL RECEPTIONIST.CSIR Anesthesia Postop Eval I: Summary Notes Anesthesia Complication No 04/20/24 15:52 LEGAL RECEPTIONIST.CSIR Anesthesia Complication Comment: Post-operative progress note Anesthesia: Postop Eval II Evaluation Mental status: Awake Pain Level: 0 nausea: No Vomiting: No
== END 2024-04-20 16:36 | disposition home or self-care (01) ==
LOC: SDC 13:13 → AC 13:15
PROVIDERS: PCP Family Medicine; Referring Provider Surgery Plastic and Reconstructive Surgery; Visit Provider Surgery Plastic and Reconstructive Surgery
PROC: (CPT 26735; principal; 2024-04-20 14:45)
DX: S62.621A Displaced fracture of middle phalanx of left index finger, initial encounter for closed fracture (principal); F17.220 Nicotine dependence, chewing tobacco, uncomplicated; W23.0XXA Caught, crushed, jammed, or pinched between moving objects, initial encounter; D69.9 Hemorrhagic condition, unspecified; I78.0 Hereditary hemorrhagic telangiectasia; J45.909 Unspecified asthma, uncomplicated
CPT/HCPCS: 26735; 01830; 73140; 76000; C1713; J7120; A4216

== ENCOUNTER 2024-07-01 14:00 | Outpatient (RCR) | payer OTHER, SELFPAY ==
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
--- NOTE | 2024-07-01 14:26 | HP.OTDCSUM_ITS ---
Discharge Summary D/C Summary: It has been my pleasure to treat ANANDA COWART under orders from Dr. Armand Nuñez MD, for the diagnosis of S62.601A, S67.22XA, S61.213A for a total of 11 visit(s). Please see the following information for a summary of their discharge status. Overall Improvement % Improvement: 90 Objective Objective/Function: L IF DIP -5/70 PIP +10/95 left small package and bundle sorter clerk strength 85# right is at 110# left lateral pinch 20# right 22# left tripod pinch 20# left 22# Goals Patient Goals: Regain Strength, Return to Work, Decrease Swelling/Stiffness, Use Hand/Wrist/Arm Normally Again, Increase ROM, Resume Former Household Responsibilities (Cooking,Cleaning,Yard, etc.) and Resume Hobbies Goal:100% adherence to protocol: Yes Goal Progress: Goal Met Goal:Daily scar massage when approriate: Yes Goal Progress: Goal Met Goal:ROM equal to unaffected hand: Yes Goal Progress: Progressing Goal:Interventional Neuroradiologist/Pinch strength at least 75% of unaffected hand: Yes Goal:No pain with affected hand use: Yes Goal Progress: Goal Met Goal:PIP Circumferences equal to unaffected hand: Yes Goal Progress: Goal Met Goal:Full use of affected hand in daily activities including work: Yes Goal Progress: Goal Met Other Goal: pt will improve quick dash score by 15 points or more in order to return to day to day tasks with L hand Plan Plan: end date of c9 pt will cont with HEP to continue to improve his functional left handed strength- D/C Information Discharge Comments: pt 04/12 OT session following a work injury- pts c9 end date is 07/02/24. pt has made great gains with his recovery. pt states he feels he is 90% back to using his hand- pt states he is ind with ADLs and IADls at this time- pt demo understanding his strength will cont. to improve with his HEP and with normal use. pt agrees with d.c. d/c sentence: If there are questions or concerns regarding this patient's occupational therapy, please fell free to call me at [phone]. Thank you for the referral of this patient. Sincerely, Linda Hanson, OTR/L, CHT
== END 2024-07-01 19:00 | disposition home or self-care (01) ==
LOC: OT 14:00
PROVIDERS: PCP Family Medicine; Referring Provider Surgery Plastic and Reconstructive Surgery; Visit Provider Surgery Plastic and Reconstructive Surgery
DX: S62.601D Fracture of unspecified phalanx of left index finger, subsequent encounter for fracture with routine healing (principal)
CPT/HCPCS: 97110; 97140; 97165; 97530